=== PATIENT | female | born 1955 | race African-American/Black ===

== ENCOUNTER 2019-01-25 08:40 | Outpatient (CLI) | payer OTHER ==
--- NOTE | 2019-01-25 09:27 | ULT ---
Gallbladder ultrasound: Multiple grayscale images of right upper quadrant obtained according to protocol. INDICATION: Pain FINDINGS: Liver: Normal Gallbladder: Not visualized. There is persistent shadowing within this region. Gallbladder wall: Not visualized. Mattson's Sign: Negative Common bile duct is normal, where visualized Ascites: None IMPRESSION: Nonvisualized gallbladder. There is increased echogenicity and shadowing. This could either relate to wall echo shadow sign, or alternatively traversing bowel within the gallbladder fossa. Consider CT exam of abdomen for further evaluation.
== END 2019-01-25 08:41 | disposition home or self-care (01) ==
LOC: MADULT 08:40
PROVIDERS: ATTEND Internal Medicine Gastroenterology
DX: R10.13 Epigastric pain (principal); R93.89 Abnormal findings on diagnostic imaging of other specified body structures
CPT/HCPCS: 76705

== ENCOUNTER 2021-06-30 16:53 | Emergency (ER) | payer OTHER ==
[2021-06-30] MEDS ORDERED: Ondansetron ODT 4 MG TAB ONE (18:44)
[2021-06-30] MEDS ORDERED: Amoxicillin/Potassium Clav 875 MG TAB ONE (18:44)
== END 2021-06-30 18:55 | disposition home or self-care (01) ==
LOC: MADERS 16:53
DX: J01.90 Acute sinusitis, unspecified (principal); B96.89 Other specified bacterial agents as the cause of diseases classified elsewhere; R11.2 Nausea with vomiting, unspecified; K21.9 Gastro-esophageal reflux disease without esophagitis; I10 Essential (primary) hypertension; J44.9 Chronic obstructive pulmonary disease, unspecified; F17.210 Nicotine dependence, cigarettes, uncomplicated; Z79.899 Other long term (current) drug therapy
CPT/HCPCS: 99283; Q0162